=== PATIENT | male | born 1940 | race Caucasian/White ===

== ENCOUNTER 2019-06-17 21:41 | Inpatient (IN) ==
[2019-06-17] MEDS ORDERED: ATIVAN IV ONE (22:49)
[2019-06-17] MEDS ORDERED: LIBRIUM PO ONE (22:49)
--- NOTE | 2019-06-17 22:52 | PROVIDER DOCUMENTATION ---
This chart was entered by Rahat Martinez Scribe, acting as scribe for Bridgett Thomas MD. HPI-Musculoskeletal Pain/Inj - GENERAL Chief Complaint: Fall Stated Complaint: fall/fx Time Seen by Provider: 06/17/19 21:56 Source: patient, EMS - HX OF PRESENT ILLNESS-MUSKULOSKELTAL Nature of Presenting Problem: 79 yom presents to the ed v/a EMS from Transfer from [facility] with a right femoral neck and right humeral head fracture. pt states falling "lost balance" and fell, pt states no LOC or hitting Head. evaluated with labs, ct head and x-rays. Labs only remarkable for elevated etoh. Per Dr. Giang at [place] ED spoke with Dr. Bailon our orthopedic surgeon who wanted pt transfer to the ED prior to admission. On arrival to the ED pt without complaints Quality of Pain: reports: none Severity in ED: mild Onset/Duration: just prior to arrival (transfer from [facility]) Timing: still present Modifying Factors: improves with: nothing Any recent injury?: Yes Locality of Occurance: Home Similar Symptoms Previously?: No Recently seen or treated by another doctor?: Yes (transfer from [facility]) - FALL INJURY Location of Pain/Injury: reports: other (RT Femoral Head and Humeral Fracture stated on paper work brought w/ transfer) Reason for Fall: reports: lost balance Symptoms prior to fall:: reports: none Loss of Consciousness: no loss of consciousness Injury Associated Symptoms: reports: denies symptoms - HIP/PELVIS PAIN/INJURY Hip Pain Location: reports: other (RT Femoral Head and Humeral Fracture stated on paper work brought w/ transfer) Context / Method of Injury: reports: fall Associated Symptoms: reports: denies symptoms Review of Systems - Adult - REVIEW OF SYSTEMS - ADULT Constitutional: denies: chills, fever Eyes: reports: no symptoms reported Ears, Nose, Mouth & Throat: reports: no symptoms reported Cardiovascular: reports: no symptoms reported Respiratory: reports: no symptoms reported Gastrointestinal: denies: nausea, vomiting Genitourinary: reports: no symptoms reported Musculoskeletal: reports: see HPI. denies: back pain, muscle weakness Integumentary: reports: no symptoms reported Neurological: reports: no symptoms reported Psychiatric: reports: no symptoms reported Endocrine: reports: no symptoms reported Hematologic/Lymphatic: reports: no symptoms reported Allergic/Immunologic: reports: no symptoms reported All Other Systems: Reviewed and Negative Past History - Adult - PAST MEDICAL HISTORY-ADULT Review of Records: reports: Old Records Reviewed, Nursing Assessment Review, Medications Reviewed, Social history reviewed & non-contributory. Major Childhood Illnesses: reports: denies history Cardiovascular: reports: HTN Respiratory: reports: denies history Gastrointestinal: reports: cancer (colon) Obstetrical/Gynecological: reports: denies history Genitourinary: reports: prostate cancer Musculoskeletal: reports: denies history Neurological: reports: denies history Psychiatric: reports: denies history Endocrine/Immune: reports: denies history Other Conditions: reports: other (skin cancer) - PRIOR SURGERIES/PROCEDURES Surgical/Procedure History: reports: reviewed, not pertinent - IMMUNIZATION STATUS Childhood Immunizations: See Nurse Assessment Flu Vaccine: See Nurse Assessment - FAMILY HISTORY Family History: reviewed, not pertinent - SOCIAL HISTORY Smoking: denies Substance Use: alcohol (chronic) Physical Exam-Injury Related - Physical Exam-Injury Related Initial Vital Signs Reviewed: Yes General Appearance: appears well, alert, no apparent distress Eyes: PERRL/EOMI, pink conjunctivae Head, Ears, Nose, Mouth & Throat: normocephalic/atraumatic, moist mucous membranes Neck: non-tender, full range of motion, supple Respiratory: chest non-tender, lungs clear, normal breath sounds Cardiovascular: normal peripheral pulses, regular rate, rhythm Abdominal Exam: non tender, soft Extremity: other (right arm in sling, mild ttp over proximal humerus, ttp over right hip, 2+ pulses neurovascularly intact) Integumentary: normal color, warm/dry Neurologic: grossly normal, no motor/sensory deficits Psych/Mental Status: normal mood/affect, normal thought content, normal thought process, oriented x 3 - Glascow Coma Score Best Eye Response ([place]): (4) open spontaneously Best Verbal Response ([place]): (5) oriented Best Motor Response ([place]): (6) obeys commands [place] Total: 15 Progress - PLAN OF CARE/RESULTS Progress/Plan/Lab Results: Vital Signs - 8 hr 06/17/19 21:55 Temperature 98.6 F Pulse Rate 103 H Respiratory Rate 20 Blood Pressure 151/92 O2 Sat by Pulse Oximetry 96 fall with hip and humerus fracture. Discussed case with Dr. Bailon who would like pt admitted to the hospitalist and plans surgical intervention tomorrow. Discussed case with Dr. Shi, hospitalist, who will see and admit pt. - CONSULTS/PCP/HOSPITALIST Notification #1 *Consult/PCP/Hospitalist*: consult w/ Ortho Time Discussed: 22:28 #2 Consult: consult w/ Hospitalist Time Discussed: 22:30 Consult Disposition: Admit Departure - Departure Date of Disposition Decision: 06/17/19 Time of Disposition Decision: 22:51 DIAGNOSIS: Hip fracture Qualifiers: Encounter type: initial encounter Fracture type: closed Laterality: right Qualified Code(s): S72.001A - Fracture of unspecified part of neck of right femur, initial encounter for closed fracture Humerus fracture Qualifiers: Encounter type: initial encounter Humerus Location: proximal Fracture type: closed Fracture morphology: other fracture Fracture alignment: displaced Laterality: right Qualified Code(s): S42.291A - Other displaced fracture of upper end of right humerus, initial encounter for closed fracture Disposition: ADMITTED INPATIENT 09 Certified Medical Emergency: Emergent Condition: Good - Critical Care Note This patient required my direct & personal management of CC.: No Attestation - Physician/ MITZY Attestation Patient care was provided by Advanced Practice Provider:: No The physician spent face to face time with patient:: Yes Advanced Practice Provider documentation review:: Supervising physician onsite and consulted in the evaluation and care of this patient. The physician did have a face to face encounter with the patient. This chart was documented by the indicated scribe, (Rahat Martinez, [place]) and accurately reflects the services I performed and decisions made by me, Bridgett Thomas MD, as attested by the provider's signature.
[2019-06-17] MEDS ORDERED: THIAMINE 200 MG in NS 50 ML IV ONE (23:03)
--- NOTE | 2019-06-17 23:49 | HISTORY AND PHYSICAL ---
ADDENDUM: Mr. May is a 79-year-old male with past medical history of chronic alcoholism, hypertension, anxiety disorder, who after a drinking spell missed his foot and fell, and sustained a right femoral head and humeral fracture. He has a pre-existing ankle fracture. He was transferred from [facility] after being accepted by orthopedic doctor. The patient denies any loss of consciousness and did not hit his head. He is very anxious and is worried that he may go into full-blown withdrawal. He drinks about 1-1/2 to 2 bottles of wine every day. His last drink was sometime this afternoon. PHYSICAL EXAMINATION: VITAL SIGNS: Heart rate 103, blood pressure 151/92, temperature is 98.6 degrees, respiratory rate is 20. GENERAL: A very anxious and slightly tremulous man, who is not in acute distress. MUSCULOSKELETAL: Slight bruise on the right side of his quaker and maxilla. He has a hard cast on his right ankle and a soft cast on his right forearm. EXTREMITIES: Neurovascularly intact. GASTROINTESTINAL: Slightly distended abdomen with decreased bowel sounds. CARDIOVASCULAR: Normal. PLAN: Get this patient to the ICU because I am very concerned that he could go into full-blown delirium tremens and that could be a problem on the floor. I think it will serve him well to be in the ICU during his immediate perioperative period before transfer to the floor. We will start him on Ativan, Librium, thiamine. Can use beta blockers or clonidine as his choice of antihypertensive during his stay. Replete electrolytes and start him on fluids. cc: Kristina Dean MD MTDD
[2019-06-18 00:52] LABS: BASO# 0.02 X1000 (0.0-0.2); BASO% 0.3 % (0.0-0.8); EOS# 0.05 X1000 (0.0-0.7); EOS% 0.7 % (0.0-10.0); HEMATOCRIT 33.7 % (42.0-52.0); HEMOGLOBIN 11.3 g/dL (14.0-18.0); IMM GRAN# 0.02 X1000 (0.0-0.04); IMM GRAN% 0.3 % (0.0-0.5); LYMPH# 1.09 X1000 (1.2-3.4); LYMPH% 14.4 % (20.5-51.1); MCH 31.7 PG (27-31); MCHC 33.5 g/dL (33-37); MCV 94.7 FL (81-99); MONO# 1.29 X1000 (0.11-0.59); MPV 8.5 FL (7.4-10.4); NEUT% 67.3 % (42.2-75.2); PLT 227 X1000 (130-400); RBC 3.56 XMIL (4.7-6.1); RDW 14.2 % (11.5-14.5); WBC 7.57 X1000 (4.8-10.8)
[2019-06-18 01:05] LABS: URINE SOURCE CLEAN CATCH
[2019-06-18 01:06] LABS: INR 1.03; PROTIME 13.6 Seconds (11.0-16.0)
[2019-06-18 01:07] LABS: PTT 31.3 Seconds (22.3-41.8)
[2019-06-18 01:08] LABS: BILIRUBIN URINE NEGATIVE (NEGATIVE); BLOOD URINE NEGATIVE (NEGATIVE); COLOR YELLOW; GLUCOSE URINE NEGATIVE (NEGATIVE); KETONE URINE TRACE mg/dL (NEGATIVE); LEUKOCYTES URINE NEGATIVE (NEGATIVE); NITRITE URINE POSITIVE (NEGATIVE); PROTEIN URINE NEGATIVE (NEGATIVE); SP GRAVITY URINE 1.009; TURBIDITY URINE CLEAR (CLEAR); UR EPITHELIAL CELLS <10 /HPF (<10); URINE BACTERIA NEGATIVE /HPF; URINE RBC <10 /HPF (<10); URINE WBC <10 /HPF (<10); UROBILINOGEN URINE NORMAL (NORMAL)
[2019-06-18 01:16] LABS: AGAP 17; ALB/GLOB RATIO 1.3; ALBUMIN 3.8 g/dL (3.5-5.0); ALKALINE PHOSPHATASE 91 U/L (32-122); BUN 7 mg/dL (8-22); CALCIUM 8.6 mg/dL (8.8-10.2); CHLORIDE 92 mmol/L (98-107); COSMO 255; CREATININE 0.7 mg/dL (0.7-1.2); ESTIMATED GFR > 60; GLUCOSE 105 mg/dL (70-104); GOT 150 U/L (10-34); GPT 45 U/L (10-44); MAGNESIUM 1.6 mg/dL (1.5-2.7); POTASSIUM 4.4 mmol/L (3.5-5.1); SODIUM 128 mmol/L (136-145); TCO2 19 mmol/L (25-35); TOTAL BILIRUBIN 0.66 mg/dL (0.20-1.00); TOTAL PROTEIN 6.8 g/dL (6.3-8.3)
[2019-06-18 01:16] LABS: UR AMPHETAMINES QUAL NONE DETECTED (NONE DETECT); UR BARBITUATES QUAL NONE DETECTED (NONE DETECT); UR BENZODIAZEPIN QUAL NONE DETECTED (NONE DETECT); UR CANNABINOIDS QUAL NONE DETECTED (NONE DETECT); UR COCAINE QUAL NONE DETECTED (NONE DETECT); UR METHADONE QUAL NONE DETECTED (NONE DETECT); UR OPIATES QUAL PRESUMPTIVE POSITIVE (NONE DETECT); UR OXYCODONE QUAL NONE DETECTED (NONE DETECT); UR PCP QUAL NONE DETECTED (NONE DETECT)
--- NOTE | 2019-06-18 02:26 | EKG Report ---
Test Performed on : 06/18/2019 00:35:09 AM Test Reason : R Hip Fx,R Humeral Fx,ETOH Intoxication Blood Pressure : / mmHG Vent. Rate : 114 BPM Atrial Rate : 114 BPM P-R Int : 158 ms QRS Dur : 078 ms QT Int : 332 ms P-R-T Axes : 048 -49 005 degrees QTc Int : 457 ms Sinus tachycardia. Left anterior fascicular block Anterolateral infarct , age undetermined Abnormal ECG No previous ECGs available Confirmed by Yair VILLARREAL, Sorin Roblero ([id number]) on 06/20/2019 5:56:32 PM
[2019-06-18] MEDS ORDERED: ZOFRAN IV PRN (02:28)
[2019-06-18] MEDS ORDERED: TYLENOL PO PRN (02:28)
[2019-06-18] MEDS ORDERED: NS 1,000 ML IV SCH (02:30)
[2019-06-18] MEDS ORDERED: SODIUM CHLORIDE 0.9% INJ SCH (02:30)
[2019-06-18] MEDS: PROTONIX IV SCH (03:25)
[2019-06-18] MEDS: ATIVAN IV PRN ×2 (04:09→11:03)
[2019-06-18] MEDS: LIBRIUM PO SCH ×3 (05:24→18:47)
[2019-06-18 06:21] LABS: URINE SOURCE CATH
[2019-06-18 06:24] LABS: BILIRUBIN URINE NEGATIVE (NEGATIVE); BLOOD URINE TRACE (NEGATIVE); COLOR YELLOW; GLUCOSE URINE NEGATIVE (NEGATIVE); KETONE URINE 40 mg/dL (NEGATIVE); LEUKOCYTES URINE LARGE (NEGATIVE); NITRITE URINE POSITIVE (NEGATIVE); PROTEIN URINE NEGATIVE (NEGATIVE); SP GRAVITY URINE 1.013; TURBIDITY URINE CLEAR (CLEAR); UROBILINOGEN URINE NORMAL (NORMAL)
[2019-06-18 06:25] LABS: UR EPITHELIAL CELLS <10 /HPF (<10); URINE BACTERIA 1+ /HPF; URINE RBC <10 /HPF (<10); URINE WBC TNTC /HPF (<10)
[2019-06-18] MEDS: MORPHINE IV PRN ×2 (07:38→12:23)
--- NOTE | 2019-06-18 09:16 | Diag Imaging Result Doc PS360 ---
CT HEAD W/O CONTRAST - 06/18/2019 INDICATION: Fall,hitting head,abrasion/bruise to R cheek COMPARISON: None FINDINGS: There is anterior dislocation of the temporal mandibular joints bilaterally. Majority of the mandible is not imaged as this is a head CT only. There is moderate diffuse atrophy of the brain. No intracranial mass or hemorrhage. The calvarium is intact. The sinuses all appear clear. IMPRESSION: 1. Age-indeterminate bilateral temporomandibular joint dislocation. 2. Cerebral atrophy but no intracranial injury. This exam was performed using automated exposure control, adjustment of mA or kV according to patient size, and/or use of iterative reconstruction technique Electronically signed by Julius Delatorre 06/18/2019 9:14 AM
--- NOTE | 2019-06-18 10:11 | Diag Imaging Result Doc PS360 ---
SHOULDER-RIGHT - 06/18/2019 INDICATION: fx TECHNIQUE: Two views COMPARISON: None FINDINGS: There is a severely impacted, severely comminuted, displaced fracture of the humeral head. No dislocation. IMPRESSION: Severe right humeral head fracture. Electronically signed by Julius Delatorre 06/18/2019 10:08 AM
--- NOTE | 2019-06-18 10:13 | Diag Imaging Result Doc PS360 ---
HIP W/PELVIS BILAT 2 VIEWS - 06/18/2019 INDICATION: fx TECHNIQUE: Four views COMPARISON: None FINDINGS: There is a mildly impacted right femoral neck fracture, at the base of the femoral neck. No definite intertrochanteric extension. No dislocation. There is advanced vascular calcification of the femoral artery systems bilaterally. There are numerous surgical clips in the pelvic soft tissues. IMPRESSION: Right femoral neck fracture. Electronically signed by Jluius Delatorre 06/18/2019 10:11 AM
--- NOTE | 2019-06-18 10:16 | Diag Imaging Result Doc PS360 ---
FEMUR MIN 2 VIEWS RIGHT - 06/18/2019 INDICATION: fx TECHNIQUE: Two views COMPARISON: None FINDINGS: There is no distal femur fracture. IMPRESSION: No distal femur fracture. Electronically signed by Julius Delatorre 06/18/2019 10:14 AM
--- NOTE | 2019-06-18 12:39 | HISTORY AND PHYSICAL ---
PRIMARY CARE PROVIDER: Dr. Benson Elizondo in [*] [place]. CHIEF COMPLAINT: Fall. HISTORY OF PRESENT ILLNESS: Mr. May is a 79-year-old male with a past medical history of chronic alcoholism, hypertension, anxiety disorder and depression. The patient was transferred to our facility from [facility] ER. He was transferred from their ER to our ER here. He was excepted by the orthopedic doctor, Dr. Bailon. According to patient report and ER nurse report, over the past 2 days the patient has fallen twice. The patient reports that yesterday on June 16 that he did fall while trying to get up out of bed and did hit his right cheek area on what sounded to be either possibly the side of the bed or a bedside table. They did not report any loss of consciousness. The patient also reports that today, he fell due to he was walking with his walker saw a piece of paper lying on the floor, was going to attempt to bend over and pick it up and when he bent over, he became dizzy. When he stood back up, he was dizzy and fell. The patient states he is unsure if he hit his head, though, he did not report any loss of consciousness. After his fall, he did report right shoulder and right hip pain. Coincidentally the patient, in February 2019, did fracture his right humerus in a very similar location as his fracture this evening. He stated this did not require surgical intervention. He did wear a sling for quite some time. Also, recently he had injured his right lower extremity. He has a right ankle cast noted for treatment of a reported tib-fib fracture. The patient reports that he does live at home with his , though, she was not home during these falls that he is reporting. The patient does report that he drinks approximately half a box to a box of wine a day. He states he has drink this much daily for a few years now. He does report that when he goes without drinking he does experience some withdrawal symptoms, though denies any history of alcohol withdrawal seizures. Also noted upon my examination, was the patient did appear to have dried blood noted from the corner of his mouth bilaterally down his chin. This did appear to be like coffee-ground emesis in appearance. It also did have a smell of blood as well. The patient denies any recent nausea, vomiting, or any emesis or coffee-grounds emesis. I did check the patient's mouth thoroughly for any type of abrasions are lacerations thinking the patient may have possibly bitten his tongue or lip when he failed, though I did not note any injury to his top or bottom lip or the inside of his mouth. He did not have any dry blood noted in either nares. He did not have any blood noted in the posterior pharynx. I do not believe this came from a nosebleed either. Upon further questioning the patient, he did report that previously he did take pain medication like [place] and was drinking alcohol and this was causing him to have increased falls. He states this was causing him to have increased falls. He did stop taking the [place] and reports that he has been taking ibuprofen instead. He takes 800 mg ibuprofen tablets. Usually, he states he takes 2 a day, though, has taken up to 4. Though he denied denies any hematemesis or melena. He denies any abdominal pain. The patient is alert oriented to person, place, time, and situation. He is able to answer questions appropriately and follow commands. He denies any headache. He did report dizziness just prior to both of his falls. This does sound to be orthostatic in nature. His fall on the was when he was trying to get out of bed, going from a sitting to a standing position and his fall yesterday was when he bent over to pick a piece of paper and became dizzy and fell. He denies any cough, shortness of breath or chest pain. He denies any abdominal pain. He denies any dysuria or urinary frequency. Other than his reported right arm pain and right hip pain, he is not reporting any other pain, numbness, tingling or swelling or any other injuries at this time. IMAGING: Initial radiology studies performed at [facility], a right shoulder x-ray, which did show a comminuted fracture of the humeral neck which involved the greater tuberosity. There is also a right femur x-ray, which noted a foreshortened right femur compatible with a femoral neck fracture. There was a chest x-ray performed in the ER. The image is available for viewing on the patient's disk, which did arrive with him to the ER, though, I do not have a radiologist report. There did not appear to be any acute abnormalities, though, we are awaiting official radiology overview. After arriving to our facility here, we did perform a CT of the head without contrast, which did not show any acute intracranial abnormality, though there was noted to be bilateral dislocation of TMJ. Though, this was age indeterminate. LABS: Labs of note that were drawn at [facility]: He was slightly anemic, hemoglobin 11, hematocrit 34. Sodium was slightly low at 126. Serum alcohol level was 247, though, I do not have a urinalysis available for viewing and they did report that he did have a urinary tract infection and was given a dose of Rocephin there. PHYSICAL EXAMINATION: Upon my examination of the patient in our ER, he was resting in bed. He was awake, alert and oriented to person, place, time, and situation. The patient was reporting right shoulder and right hip pain, though the patient was not reporting any other pain at this time. He did report to me about hitting his head yesterday during his fall and possibly hitting his head tonight. He does have a very slight erythematous area of what appears to be ecchymosis on his right cheek and maybe a small abrasion. Though, this area was not tender upon palpation. He denies any neck pain. He had no C-spine tenderness noted. He is denying any back pain. He denies any numbness or tingling in extremities. He does have good capillary refill less than 3 seconds in his toes distal to the injury of his right hip and he does have a cast in place on his right lower extremity. The patient can open and close his mouth and move his jaw laterally [id number] and does not report any pain. There did not appear to be any obvious deformity as well. The patient denied any known previous jaw injury. He did have some what appeared to be dried coffee-ground appearing emesis noted to his mouth from bilateral corners inward down his valentine. This did smell of blood as well. He denied any previous nausea or vomiting. He states he does not know what that is on his chin or how it got there. We did do a Hemoccult stool which was negative. The patient does report daily alcohol use and daily use of high dose ibuprofen 800 mg tablets. Though we did repeat his hemoglobin and hematocrit, it was stable at this time at 11.3 and hematocrit 33.7. The patient was placed in the ICU for close monitoring given his history of alcoholism and high concern for likely alcohol withdrawal. REVIEW OF SYSTEMS: A 14 point review of systems was conducted with the patient. All were negative except for pertinent positives mentioned above HPI. PAST MEDICAL HISTORY: 1. Alcohol abuse. 2. Hypertension. 3. History of acute renal failure. 4. Depression. 5. Anxiety. 6. History of colon cancer status post colon resection. 7. History of prostate cancer status post prostatectomy. PAST SURGICAL HISTORY: 1. Colon resection. 2. Prostatectomy. 3. Questionable surgery for possible perforated viscus. SOCIAL HISTORY: The patient states that he did smoke cigarettes for a period of 3 to 4 weeks, though this was several years ago. He denies any other tobacco use. He denies any illicit drug use either. He does report that he drinks half a box to a box of wine a day and has done this for a few years now. He does report that he lives at home with his and he does use ambulatory assistance of a walker. FAMILY HISTORY: Positive for his father having history of lung cancer. His mother secondary to what they believe was a myocardial infarction. ALLERGIES: Patient reports no known allergies. HOME MEDICATIONS: 1. Lexapro 20 mg p.o. daily. 2. [place] 5 mg tablet 1 tablet p.o. p.r.n. as directed. 3. Lisinopril 10 mg p.o. daily. DIAGNOSTIC DATA: Please see patient's medical records from [facility] that is on the patient's chart for further details about laboratory studies performed there. Diagnostic studies performed here to our facility after the patient's arrival included white blood cell count is 7570, hemoglobin 11.3, hematocrit 33.7, platelet count is 227,000. PT 13.6, INR 1.03, PTT is 31.3. Sodium 128, potassium 4.4, chloride 92, serum bicarbonate is 19, BUN 7, creatinine 0.7 with a GFR greater than 60, glucose 105, calcium 8.6, phosphorus 3, magnesium is 1.6. Total bilirubin 0.66, AST of 150, ALT [*], alkaline phosphatase is 91. CK is 5420. Urine drug screen was positive for opiates, though, the patient had already received pain medication at [facility] ER. Urinalysis was positive for trace ketones and nitrites. EKG showed sinus tachycardia at a rate of 114 with a QTc of 457. Chest x-ray performed at [facility] did not show any acute abnormality, though, we are awaiting official radiology over-read. I did not have a report available for this study at this time. Right shoulder x-ray did show comminuted fractures of the humeral neck, which involves the greater tuberosity. Right femur x-ray did show a foreshortened right femur compatible with a femoral neck fracture. CT of the head without contrast did not show any acute abnormality, though, it did not show any acute intracranial abnormalities, though, it did note that the patient has dislocated bilateral TMJ. This is a age indeterminate. PHYSICAL EXAMINATION: VITAL SIGNS: Temperature 98.6 degrees, heart rate 103, respirations 20, blood pressure is 151/92, oxygen saturation is 96% per nasal cannula at 2 L. GENERAL: Mr. May is a 79-year-old male who is resting in the ER stretcher. He was in no acute distress. He was awake, alert, and able to answer questions appropriately. HEENT: Head atraumatic, except for he does have a very small area of what appears to be ecchymosis, which is erythematous in color. There was a small abrasion noted as well. The pupils were equal, round, reactive to light, were 3 mm bilaterally and brisk. Sub-conjunctivae were pink. Oral mucosa was moist. Oropharynx was clear. The patient does have dry blood noted bilaterally from each corner of his mouth inward toward his chin from his bottom lip down to his chin. This did appear to have a coffee-ground emesis appearance and did smell of blood as well. Though, the patient's mouth did not have any blood noted. There is no laceration, sores, or wounds noted either. There is no blood noted in the posterior pharynx. There was no blood noted in either naris as well. The patient was able to open and close his mouth and move his jaw laterally from side to side without reports of any pain. There is no obvious deformity noted either. NECK: Supple. Trachea midline. CARDIOVASCULAR: Patient has S1-S2 present. No murmurs, gallops, rubs appreciated with a tachycardic rate that is regular. PULMONARY: Patient has symmetrical chest expansion bilaterally. Lung sounds are clear to auscultation in bilateral full conrad. ABDOMEN: Soft, nontender. Does not appear to be distended. Bowel sounds were present in all 4 quadrants, were normoactive. The patient does have an abdominal hernia noted, but he states this has not increased in size. It is nontender upon palpation. EXTREMITIES: No cyanosis or edema noted. Radial pulses are 2+ bilaterally. Dorsalis pedis pulse in left lower extremity was 2+ as well. Pulse, motor and sensory is intact in all extremities, though, the patient's pedal pulse on his right foot was unable to be obtained. He does have a hard cast noted. He does good have good capillary refill less than 3 distal to the splint in his right toes. MUSCULOSKELETAL: The patient did not report any neck pain. He had no C-spine tenderness noted. He denied any back pain. He did not report any rib pain or tenderness upon palpation. INTEGUMENTARY: The patient's skin is pink, warm, and dry. NEUROLOGICAL: Patient is alert and oriented to person, place, time, and situation. He is able move all extremities. There are no focal neurological deficits noted. ASSESSMENT AND PLAN: 1. Right hip fracture. 2. Right humeral fracture. 3. A recent right tibia-fibular fracture for which the patient does have a hard cast noted at this time. For treatment of #1, 2 and 3 we have placed a consult with Orthopedic surgery with Dr. Bailon. The patient will remain NPO at this time until he is evaluated by Dr. Bailon in the morning. We will continue with p.r.n. pain medication. The patient does have a shoulder immobilizer in place at this time. We will await Orthopedic surgery evaluation and further recommendations for management. 4. Multiple falls. It is uncertain exactly what could be contributing to the patient's falls. He does have alcohol abuse. This likely would put him at high risk for falls as well, though he is describing what sounds to be some dizziness when going from sitting to standing and bending over and standing back. This could be orthostatic related falls as well. We will continue to monitor this closely. Though, the patient is unable to perform orthostatics at this time due to his right hip fracture. 5. Bilateral dislocation of temporomandibular joints. The patient denies any recent known injury or previous injury to either 1 of his temporomandibular joints. It could be possible with his recent falls that he may have injured this, though, the CT report noted that the age was indeterminate. The patient can open and close his mouth, can move his jaw laterally without any reported pain. We will continue to monitor this. 6. Alcohol abuse. We will monitor the patient closely for alcohol withdrawal. He does report a history of this when he goes for a period without drinking, though, he denies any history of withdrawal seizures. We have placed orders for p.r.n. Ativan. We have also placed him on Librium. He will receive a daily banana bag as well. He has been placed in the ICU for close monitoring given this. 7. Possible coffee-grounds emesis. The patient did have what appeared to be dried coffee-grounds emesis noted to his lower lip and chin, though, this was not present inside his mouth upon my examination. We did perform Hemoccult stool which did which was negative. He denies any nausea, vomiting, hematemesis, hematochezia or melena. Though, he does drink daily and has been reporting that he takes anywhere from 2 to 4 ibuprofen 800 mg daily. We have placed him on Protonix 40 mg IV hours, though, we do need to continue to monitor this. 8. Urinary tract infection. The patient did have nitrites noted in his urine. We will continue Rocephin at this time. We are awaiting urine culture results. 9. Deep vein thrombosis prophylaxis. We will leave this to the discretion of the Orthopedic surgical team, given that the patient is going to likely need surgical repair of his hip and possible humeral fracture. The patient has been placed in ICU for close monitoring. We will monitor his electrolytes closely. He will be on continuous cardiac telemetry, pulse oximetry with frequent vital signs and neurological checks. Further orders and recommendations pending hospital course, diagnostic studies, and physician evaluation. Dictated by KOFI Arreola for Kristina Dean MD cc: Kristina Dean MD
[2019-06-18 12:45] LABS: HEMATOCRIT 33.3 % (42.0-52.0); HEMOGLOBIN 10.9 g/dL (14.0-18.0)
[2019-06-18 13:04] LABS: AGAP 15; BUN 9 mg/dL (8-22); CALCIUM 8.6 mg/dL (8.8-10.2); CHLORIDE 96 mmol/L (98-107); COSMO 261; CREATININE 0.7 mg/dL (0.7-1.2); ESTIMATED GFR > 60; GLUCOSE 101 mg/dL (70-104); MAGNESIUM 1.6 mg/dL (1.5-2.7); PHOSPHORUS 2.8 mg/dL (2.7-4.5); POTASSIUM 4.7 mmol/L (3.5-5.1); SODIUM 131 mmol/L (136-145); TCO2 20 mmol/L (25-35)
--- NOTE | 2019-06-18 13:08 | Diag Imaging Result Doc PS360 ---
HIP 1 VIEW RIGHT - 06/18/2019 11:15 AM INDICATION: FX; TRACTION TECHNIQUE: COMPARISON: 9:34 AM FINDINGS: There has been reduction in the impacted right femoral neck fracture. No dislocation. IMPRESSION: Reduction in the impaction of the right femoral neck fracture. Electronically signed by Julius Delatorre 06/18/2019 1:06 PM
--- NOTE | 2019-06-18 13:09 | Diag Imaging Result Doc PS360 ---
ANKLE COMPLETE RIGHT - 06/18/2019 INDICATION: FX TECHNIQUE: Three views COMPARISON: None FINDINGS: The ankle is imaged in a cast. This significantly obscures most of the detail. There is a displaced spiral distal fibular fracture. There is mild widening of the ankle mortise. There is severe peripheral vascular disease. Fracture of the medial malleolus cannot be excluded. IMPRESSION: Displaced lateral malleolus fracture. Cannot exclude medial malleolus fracture. Electronically signed by Julius Delatorre 06/18/2019 1:07 PM
[2019-06-18 13:20] LABS: CK TOTAL 3027 U/L (24-204)
[2019-06-18] MEDS ORDERED: KEFZOL 1 GM/D5W 2 GM/100 ML IVPB ONE (16:12)
[2019-06-18] MEDS ORDERED: OFIRMEV 1000 MG/ISOTONIC SOLN 1,000 MG/100 ML BOTTLE ONE (16:16)
[2019-06-18] MEDS ORDERED: ZEMURON ONE ×2 (16:16→16:33)
[2019-06-18] MEDS ORDERED: DECADRON ONE (16:16)
[2019-06-18] MEDS ORDERED: TORADOL ONE (16:16)
[2019-06-18] MEDS ORDERED: ZOFRAN ONE (16:16)
[2019-06-18] MEDS ORDERED: LABETALOL (DOSE) ONE (16:18)
[2019-06-18] MEDS ORDERED: DIPRIVAN 1% ONE (16:40)
[2019-06-18] MEDS ORDERED: NEOSTIGMINE ONE (17:17)
[2019-06-18] MEDS ORDERED: ROBINUL ONE (17:17)
[2019-06-18] MEDS ORDERED: MAGNESIUM SULFATE 2 GM/S.W.I. 2 GM/50 ML IVPB IV ONE (17:20)
[2019-06-18] MEDS: NS 1,000 ML IV SCH (17:30)
--- NOTE | 2019-06-18 19:33 | PROGRESS NOTE ---
DATE: 06/18/2019 SUBJECTIVE: The patient is resting comfortably in bed. He had periods of agitation overnight and required Ativan as well as morphine this morning. He states that he drinks alcohol daily. OBJECTIVE: Vital Signs: Temperature 99 degrees, blood pressure 106/67, heart rate 117, respirations 22, O2 saturations 94% on 2 L nasal cannula. General: This is a chronically ill- appearing elderly male lying in bed in no acute distress. Heart: S1, S2 normal. Tachycardic. Lungs: Clear to auscultation bilaterally. No wheezing. No rales. No rhonchi. Abdomen: Positive bowel sounds. Soft, nontender, nondistended. Extremities: No edema, no cyanosis. Neurologic: The patient is alert and oriented to person and place. LABS: White blood cell count 7.5, hemoglobin 10, hematocrit 33, platelets 227,000, sodium 131, potassium 4.7, chloride 96, CO2 20, BUN 9, creatinine 0.7, glucose 101, magnesium 1.6. CK 3027. ASSESSMENT AND PLAN: 1. Alcohol withdrawal. Continue on the current treatment regimen to include her Librium and Ativan as needed. 2. Right femoral neck fracture. The patient is scheduled to undergo surgery today. 3. Rhabdomyolysis. Continue with IV fluids. 4. Alcohol dependence. Aware. 5. Urinary tract infection. Continue on Rocephin. Urine culture results are currently pending. 6. Hypomagnesemia. We will replace the patient's magnesium. 7. DVT prophylaxis. [facility] cc: MD GRETTA Snyder
[2019-06-18] MEDS: ROCEPHIN 1 GM in NS 50 ML IV SCH (19:54)
--- NOTE | 2019-06-18 20:09 | ORTHOPAEDICS CONSULTATION ---
DATE: 06/18/2019 CHIEF COMPLAINT: Fall. HISTORY OF PRESENT ILLNESS: Mr. May is a 79-year-old male who presented to the emergency department at [facility] on 06/17/2019 after a fall. He has complained of a lot of right hip pain and shoulder pain. He has a history of right shoulder fracture that has been taking care of by Dr. Vázquez. He has also had a right ankle fracture that has been followed outpatient as well. Unfortunately he fell and injured the right hip, and radiographs at [facility] showed a hip fracture. He was transferred over to [facility] and admitted per the hospitalist service. PAST MEDICAL HISTORY: Significant for alcoholism and recent fractures. ALLERGIES: No known drug allergies. MEDICATIONS: Per the medical record. REVIEW OF SYSTEMS: Positive for alcoholism, right hip pain, right shoulder pain and right ankle pain. PHYSICAL EXAMINATION: General: Mr. May is lying in bed, mainly complaining of pain in his hip. He is in no acute distress. Head and Neck: Normocephalic, atraumatic. Respiratory: He has nonlabored breathing. Cardiovascular: Regular pulse. Abdomen is nondistended. On right upper extremity exam, his upper extremity is in a sling. He does have a little bit of tenderness to palpation on the shoulder but not bad. On right lower extremity exam he is tender to palpation all around the hip. He has a cast on the right ankle. He is able to move his toes really well and has good capillary refill to the toes. DIAGNOSTIC DATA: Radiographs of the right shoulder show a subacute fracture of his proximal humerus. Pelvis and femur films of the right side show a high intertrochanteric fracture. Right ankle films show a lateral malleolus fracture with some displacement. ASSESSMENT: 1. Acute right intertrochanteric hip fracture. 2. Right subacute shoulder fracture. 3. Right subacute ankle fracture. PLAN: I discussed with Mr. May about everything going on. Unfortunately, he did break the hip which will require surgical intervention. I went over with him and his significant other about surgery. I went over with him the procedure, risks, benefits and potential complications. Risks include, but are not limited to infection, wound healing problems, damage to nerves, arteries or veins, numbness, malunion, nonunion, hardware-related issues, continued pain, DVT and anesthesia- related risks. After discussing these with the patient, he expressed understanding and wished to proceed. This will be a right trochanteric femoral nailing. He will be NPO and we will get this done today. cc: Luis F Bailon MD
--- NOTE | 2019-06-18 22:48 | OPERATIVE NOTE ---
PROCEDURE DATE: 06/18/2019 PREOPERATIVE DIAGNOSES: 1. Right intertrochanteric hip fracture. 2. Right lateral malleolus fracture. POSTOPERATIVE DIAGNOSES: 1. Right intertrochanteric hip fracture. 2. Right lateral malleolus fracture. PROCEDURES: 1. Right trochanteric femoral nailing. 2. Right open reduction and internal fixation lateral malleolus. SURGEON: Dr. Luis F Bailon. ACCOUNTS PAYABLE OR RECEIVABLE CLERK: None. ANESTHESIA: General with LMA. ESTIMATED BLOOD LOSS: Total blood loss 250 mL, 200 at the hip, about 50 at the ankle. IMPLANTS: 1. Synthes 11 x 380 trochanteric femoral nail with 105 mm helical blade. 2. Synthes 1/3 tubular plate and screws. DISPOSITION: To PACU, hemodynamically stable. INDICATION FOR PROCEDURE: Mr. May is a 79-year-old male who has a history of falling and multiple fractures. He fell, unfortunately, broke his hip, so I discussed with him and his family about operative intervention. They expressed understanding and wished to proceed. DESCRIPTION OF PROCEDURE: Mr. May was identified in the preoperative holding area. The right hip and right ankle were marked as correct surgical site. He was then wheeled to the operating room, kept supine on his own bed. He was induced under general anesthesia. Endotracheal tube was placed. He was then moved to the traction table. Some slight traction was pulled on that right hip. Right lower extremity was then prepped with chlorhexidine, gluconate scrub and then ChloraPrep, and draped in normal sterile fashion. Surgical pause was performed. We identified the correct patient, correct side, and the correct procedure. Preop antibiotics were given. I started with an incision just proximal to the greater trochanter. Dissection was carried down. I got my starting position of the guidewire, advanced it in and then used my opening drill and then got my ball-tip guidewire down. Fluoroscopic imaging showed that we did have a really good reduction on AP and lateral views. I then reamed up to a size 12 and then placed an 11 x 380 trochanteric femoral nail down. I then made an incision on the lateral thigh and then got my aiming guide in for the helical blade. I passed the guidewire up center-center in the head, I reamed and then passed the helical blade up. I secured it to the rohan with set screw and then removed the outrigger guide. Final images were taken which showed we had good reduction and good overall position. I then closed that wound with 0 Vicryl for the deep layer, 2-0 Vicryl for the subcutaneous and mariela on the skin. Island dressings were then applied. We took all drapes down then, moved him from the traction bed to a regular OR bed, then the right lower extremity was prepped with chlorhexidine, gluconate scrub and then ChloraPrep, and draped in normal sterile fashion. Another surgical pause was performed. We identified the correct patient, correct side, and the correct procedure. Preop antibiotics were given. I did not use a tourniquet on the ankle. I made an incision over the lateral aspect of the ankle, dissection was carried down. I identified the fracture site. There was some callus formation already there, so we did have to sort of break apart some of that callus that was there. I then was able to mobilize the distal piece and reduce it really well with a pointed reduction clamp. I then used a lag screw and lagged it in. I then used a 7-hole 1/3 tubular plate, secured it proximally and distally. Radiographs then looked really good. His joint looked really good. External rotation stress test did not show any instability. We then closed that incision with 0 Vicryl for the deep layer, 2-0 Vicryl for the subcutaneous and mariela on the skin. Adaptic, 4x4s, ABD, soft roll and posterior splint was applied. He was then awoke from general anesthesia, moved to his own bed and taken to the ICU in stable condition. PLAN: Postoperatively, he will be nonweightbearing right lower extremity. Physical therapy will start working with him and social media sr strategy manager will be involved for rehab placement. cc: Luis F Bailon MD
[2019-06-19] MEDS: LIBRIUM PO SCH ×5 (00:04→20:01)
[2019-06-19] MEDS: PROTONIX IV SCH (01:44)
[2019-06-19] MEDS: ATIVAN IV PRN ×7 (02:52→21:28)
[2019-06-19 04:44] LABS: HEMATOCRIT 23.8 % (42.0-52.0); HEMOGLOBIN 7.8 g/dL (14.0-18.0); LYMPH# 0.34 X1000 (1.2-3.4); LYMPH% 5.6 % (20.5-51.1); MCHC 32.8 g/dL (33-37); MCV 97.5 FL (81-99); MONO# 0.47 X1000 (0.11-0.59); MONO% 7.8 % (1.7-9.3); NEUT# 5.24 X1000 (1.4-6.5); NEUT% 86.6 % (42.2-75.2); PLT 163 X1000 (130-400); RBC 2.44 XMIL (4.7-6.1); RDW 13.9 % (11.5-14.5); WBC 6.05 X1000 (4.8-10.8)
[2019-06-19 05:07] LABS: AGAP 12; BUN 12 mg/dL (8-22); CALCIUM 7.4 mg/dL (8.8-10.2); CHLORIDE 101 mmol/L (98-107); CK TOTAL 1502 U/L (24-204); COSMO 271; CREATININE 0.8 mg/dL (0.7-1.2); ESTIMATED GFR > 60; GLUCOSE 186 mg/dL (70-104); MAGNESIUM 1.8 mg/dL (1.5-2.7); PHOSPHORUS 2.4 mg/dL (2.7-4.5); POTASSIUM 4.4 mmol/L (3.5-5.1); SODIUM 133 mmol/L (136-145); TCO2 20 mmol/L (25-35)
[2019-06-19 05:13] LABS: LYMPHS 8 % (21-51); SEGS 88 % (42-75)
[2019-06-19] MEDS: NS 1,000 ML IV SCH (05:53)
--- NOTE | 2019-06-19 08:09 | Diag Imaging Result Doc PS360 ---
CHEST-1 VIEW - 06/19/2019 INDICATION: dyspnea COMPARISON: None FINDINGS: The lungs are normally expanded and clear. Heart size and mediastinal contours are normal. No pneumothorax or pleural effusion. There is a right shoulder fracture. IMPRESSION: No acute disease. Electronically signed by Julius Delatorre 06/19/2019 8:06 AM
[2019-06-19] MEDS ORDERED: M.V.I.-12 10 ML, FOLIC ACID 1 MG, MAGNESIUM SULFATE 1 GM, THIAMINE 100 MG in NS 1,000 ML IV SCH (09:00)
--- NOTE | 2019-06-19 09:09 | ORTHOPAEDICS PROGRESS NOTE ---
DATE: 06/19/2019 SUBJECTIVE: Mr. May is sitting up in his hospital bed this morning. He says he is feeling a lot better. He says the hip does not really hurt much at all this morning. OBJECTIVE: Right lower extremity exam: Dressing is clean, dry, and intact. Splint is clean, dry, and intact to the ankle. He is able to move his toes really well, and has good sensation to light touch to the toes. ASSESSMENT: 1. Status post right trochanteric femoral nailing. 2. Right open reduction internal fixation, ankle. PLAN: Mr. May is nonweightbearing, right lower extremity. I do want him up with therapy though, and sitting in a bedside chair. I think he is doing a lot better from orthopedic standpoint. Will continue to follow. cc: Luis F Bailon MD
[2019-06-19] MEDS ORDERED: DUONEB (A & A) INH PRN (10:08)
[2019-06-19] MEDS: LOVENOX SUBQ SCH (12:11)
[2019-06-19] MEDS: MORPHINE IV PRN ×2 (17:58→20:29)
[2019-06-19] MEDS: ATIVAN 20 MG in NS 190 ML IV SCH (18:17)
[2019-06-19] MEDS: CLINIMIX E 4.25%-5% SOLUTION 1,000 ML IV SCH (18:18)
--- NOTE | 2019-06-19 21:15 | PROGRESS NOTE ---
DATE: 06/19/2019 SUBJECTIVE: The patient has been noted to be very agitated today, requiring Ativan on a regular basis. OBJECTIVE: Vital Signs: Temperature 97.8 degrees, blood pressure 127/77, heart rate 98, respirations 18, O2 saturation 95% on room air. General: This is a chronically ill-appearing elderly male lying in bed in no acute distress. Heart: S1, S2 normal. Tachycardic. Lungs: Equal air entry bilaterally. No wheezing. No rales. Abdomen: Positive bowel sounds. Soft, nontender, nondistended. Extremities: No edema, no cyanosis. Neurologic: The patient is oriented to person and place. He is able to move all 4 extremities. LABORATORY AND DIAGNOSTIC DATA: White blood cell count 6, hemoglobin 7.8, hematocrit 23, platelets 163,000. Sodium 133, potassium 4.4, chloride 101, CO2 20, BUN 12, creatinine 0.8, glucose 186. CK 1502. Chest x-ray reveals no acute disease. ASSESSMENT AND PLAN: 1. Acute hypoxemic respiratory failure. The chest x-ray is clear. We will continue to monitor the patient's respiratory status closely. 2. Alcohol withdrawal. We will start the patient on the withdrawal protocol. 3. Status post right trochanteric femoral nailing. Management as per the orthopedic surgeon. 4. Status post open reduction and internal fixation of the right lateral malleolus. Management as per the orthopedic surgeon. 5. Anemia. Hemoglobin and hematocrit is decreased. We will continue to monitor this closely. 6. Hypomagnesemia. We will replace the patient's magnesium. 7. Hyponatremia. Improved. Continue to monitor closely. 8. Urinary tract infection. The urine culture is growing gram-negative rods. Continue on Rocephin. 9. Nutrition. We will start the patient on Clinimix. 10. Rhabdomyolysis. Improved. Continue on IV fluid. 11. Deep vein thrombosis prophylaxis. Continue on Lovenox. cc: Leonor Archibald MD MTDD
[2019-06-19] MEDS: ROCEPHIN 1 GM in NS 50 ML IV SCH (21:23)
[2019-06-19] MEDS ORDERED: PHENOBARBITAL IV ONE (21:37)
[2019-06-20] MEDS: PROTONIX IV SCH (02:14)
[2019-06-20] MEDS: LIBRIUM PO SCH ×2 (03:11→08:03)
[2019-06-20] MEDS: ATIVAN 20 MG in NS 190 ML IV SCH (03:26)
[2019-06-20 04:37] LABS: HEMATOCRIT 22.2 % (42.0-52.0); HEMOGLOBIN 7.1 g/dL (14.0-18.0); MCH 31.7 PG (27-31); MCV 99.1 FL (81-99); MPV 8.8 FL (7.4-10.4); RBC 2.24 XMIL (4.7-6.1); RDW 14.3 % (11.5-14.5); WBC 9.75 X1000 (4.8-10.8)
[2019-06-20 04:52] LABS: AGAP 8; ALB/GLOB RATIO 1.2; ALKALINE PHOSPHATASE 57 U/L (32-122); BUN 12 mg/dL (8-22); CALCIUM 8.1 mg/dL (8.8-10.2); CHLORIDE 103 mmol/L (98-107); COSMO 270; CREATININE 0.7 mg/dL (0.7-1.2); ESTIMATED GFR > 60; GLUCOSE 134 mg/dL (70-104); GOT 67 U/L (10-34); GPT 25 U/L (10-44); POTASSIUM 4.4 mmol/L (3.5-5.1); SODIUM 134 mmol/L (136-145); TCO2 23 mmol/L (25-35); TOTAL BILIRUBIN 0.43 mg/dL (0.20-1.00); TOTAL PROTEIN 5.5 g/dL (6.3-8.3)
--- NOTE | 2019-06-20 07:26 | ORTHOPAEDICS PROGRESS NOTE ---
DATE: 06/20/2019 SUBJECTIVE: Mr. May is on oxygen this morning. I understand that he did have a little bit of a rough night and was very agitated. He is on an Ativan drip. Per the nurse, Mr. May was saying that his hip was feeling great this morning, though he was not really waking up much to talk to me. OBJECTIVE: On right lower extremity exam, his hip dressing is clean, dry, and intact. His splint is intact to his ankle. He is not really following commands this morning. ASSESSMENT: 1. Status post right trochanteric femoral nailing. 2. Right ankle open reduction and internal fixation. PLAN: From an orthopedic standpoint, Mr. May is nonweightbearing to the right lower extremity for about a month. We will continue to follow along. Right now, it is more of a medical issue with his alcohol withdrawal. cc: Luis F Bailon MD
[2019-06-20] MEDS: CLINIMIX E 4.25%-5% SOLUTION 1,000 ML IV SCH (08:04)
[2019-06-20] MEDS ORDERED: LASIX IV ONE (08:12)
[2019-06-20] MEDS ORDERED: NS 500 ML IV ONE (08:12)
[2019-06-20] MEDS ORDERED: THIAMINE 100 MG in NS 50 ML IV SCH (08:15)
--- NOTE | 2019-06-20 08:25 | Diag Imaging Result Doc PS360 ---
EXAM: CHEST-PORTABLE 06/20/2019 HISTORY: dyspnea TECHNIQUE: AP portable at 0503 COMMENT: There is a severely comminuted fracture of the proximal right humerus. This was also present on 06/19/2019. There is some increase in blunting of the left costophrenic angle. There are platelike opacities in the lingula and left lower lobe. There is also ill-defined opacity in the right lower lobe. IMPRESSION: Bibasilar atelectasis versus pneumonia. Right humeral fracture. Electronically signed by Arnulfo Solitario 06/20/2019 8:22 AM
[2019-06-20 08:32] LABS: RETIC-HE 35.7 PG (28.2-36.6)
[2019-06-20 08:47] LABS: IRON SATURATION 15 %; TIBC 184 ug/dL; TOTAL IRON 28 ug/dL (53-167); UNBOUND IRON 156 ug/dL (112-346)
[2019-06-20 09:06] LABS: FERRITIN 439 ng/mL (30-400)
[2019-06-20] MEDS: LOVENOX SUBQ SCH (10:28)
[2019-06-20] MEDS ORDERED: NS 500 ML ONE (10:53)
[2019-06-20] MEDS: MUCOMYST 20% INH SCH ×2 (11:15→20:10)
[2019-06-20] MEDS: DUONEB (A & A) INH SCH ×4 (11:16→23:30)
[2019-06-20] MEDS ORDERED: LEVOPHED 8 MG in D5 1/2 NS 250 ML IV SCH (12:15)
[2019-06-20 12:24] LABS: ALLEN TEST YES; BE 3.2 mmoll (-3.0-3.0); BLOOD TYPE ARTERIAL; HCO3-(ACT) 27.5 mmoll (20.0-26.0); METHB 0.7 % (0.0-1.5); O2(CT) 11.8 mL/dL (15.0-23.0); O2HB 97.3 % (95.0-99.0); PCO2(98.6) 36 mmHg (35-45); PO2(98.6) 140 mmHg (60-100); SAMPLE BLOOD; SAO2 100.8 % (95.0-100.0); THB 8.4 g/dL (11.5-17.4); pH(98.6) 7.48 (7.35-7.45)
[2019-06-20 12:25] LABS: MODALITY VENTIMASK
[2019-06-20] MEDS: MAXIPIME 1 GM in NS 50 ML IV SCH (14:58)
[2019-06-20] MEDS ORDERED: FOLIC ACID 1 MG in NS 50 ML IV SCH (15:00)
[2019-06-20] MEDS: ZYVOX 600 MG/D5W 600 MG/300 ML IVPB IV SCH (15:01)
--- NOTE | 2019-06-20 16:10 | PROGRESS NOTE ---
DATE: 06/20/2019 SUBJECTIVE: The patient was noted to be confused and very agitated this morning. He is currently in wrist restraints. He is currently on an Ativan drip. OBJECTIVE: Vital Signs: Temperature 98.4 degrees, blood pressure 106/66, heart rate 87, respirations 24, O2 saturations 99% on a Venturi mask. Intake 4.1 L. Output 1.7 L. General: This is a chronically ill-appearing elderly male lying in bed in no acute distress. Heart: S1, S2 normal. Regular rate and rhythm. Lungs: Coarse breath sounds bilaterally with crackles. Abdomen: Positive bowel sounds. Soft, nontender, nondistended. Extremities: The right leg is wrapped in a boot with an Juan bandage. No edema in the left leg. Neurologic: The patient is awake but delirious and confused. LABS: White blood cell count 9.7, hemoglobin 7.1, hematocrit 22 platelets 161,000. Sodium 134, potassium 4.4 chloride 103, CO2 23, BUN 12, creatinine 0.7 glucose 134, iron 28, TIBC 184, % sat 15, ferritin 439. AST 67, ALT 25, alkaline phosphatase 57. CK 1763, folate 7.6. Chest x-ray, bibasilar atelectasis versus pneumonia. Right humeral fracture. ASSESSMENT AND PLAN: 1. Acute hypoxemic respiratory failure. The x-ray today showing pneumonia. The patient also has coarse breath sounds on examination today. We will adjust the patient's antibiotic therapy. Continue with bronchodilator therapy. We will add Mucomyst. We will also consult with the leather stamper. 2. Suspected pneumonia. The antibiotic coverage has been adjusted. Continue with bronchodilator therapy and supplemental oxygen. 3. Alcohol withdrawal. We will discontinue the Ativan drip due to the patient's worsening respiratory status. We will use Ativan p.r.n. versus the infusion. 4. Right humerus fracture. Aware. Orthopedic Surgery is following. 5. Status post right trochanteric femoral nailing. Management as per the orthopedic surgeon. 6. Status post open reduction and internal fixation of the right lateral malleolus. Management as per the orthopedic surgeon. 7. Anemia. The patient appears to be iron deficient. We will transfuse 1 unit of packed red blood cells today. 8. Severe protein calorie malnutrition. The patient was on Clinimix, that is on hold. We will consult with the dietitian. 9. Urinary tract infection secondary to Escherichia coli. Continue with antibiotic therapy. 10. Rhabdomyolysis. Unchanged. The IV fluid is on hold due to the patient's volume overload. 11. Gastrointestinal prophylaxis. Continue on IV Protonix. 12. Deep vein thrombosis prophylaxis. Continue on Lovenox. cc: Leonor Archibald MD
[2019-06-20 20:38] LABS: HEMATOCRIT 27.5 % (42.0-52.0); HEMOGLOBIN 8.9 g/dL (14.0-18.0)
[2019-06-20 21:32] LABS: HEMOGLOBIN A1C 5.1 % (4.8-6.0)
--- NOTE | 2019-06-20 22:10 | PULMONOLOGY CONSULTATION ---
DATE: 06/20/2019 REQUESTING PHYSICIAN: Dr. Archibald. REASON FOR CONSULTATION: Respiratory failure, pneumonia, and ethanol withdrawal. HISTORY OF PRESENT ILLNESS: Mr. May is a 79 year old with limited tobacco history, daily alcohol intake, who was brought to the emergency room 06/17/2019 with an elevated alcohol level and a fall without reported loss of consciousness. He has a history of a right ankle fracture which was being followed as an outpatient, and presented with right hip pain and right shoulder pain following a fall. He has a subacute fracture of the ankle and a subacute fracture of the right shoulder, but had an acute right intertrochanteric hip fracture. He went to the operating room on the and underwent a right trochanteric femoral nailing along with an open reduction and internal fixation of the lateral malleolus. The patient became progressively agitated over the last 2 days requiring increased sedation and has been diagnosed with alcohol withdrawal syndrome. Chest x-ray today revealed bibasilar infiltrates. PAST MEDICAL HISTORY: 1. Alcohol use/abuse. 2. Remote history of tobacco use, which was minimized on presentation. 3. Hypertension. 4. Anxiety/depressive disorder. 5. Status post colon resection for cancer. 6. Status post prostatectomy for prostate cancer. SOCIAL HISTORY: Patient previously living at home with his . Daily alcohol use noted on the time of admission. FAMILY HISTORY: Positive for heart disease and lung cancer. REVIEW OF SYSTEMS: Could not be obtained. PHYSICAL EXAMINATION: General: A chronically ill-appearing male in ICU bed #1. He does have some upper airway obstruction which is periodic and completely relieved with a jaw advancement maneuver. He does not have increased work of breathing. Vital Signs: The patient has been afebrile for the last 24 hours. BP 109/61, heart rate 76, respiratory rate 22, oxygen saturation 98% on 4 L per nasal cannula. HEENT: Pupils are small and minimally reactive. Oropharynx appears clear but dry. Neck: Supple. Chest: Reveals scattered rhonchi bilaterally. Cardiac: S1, S2. Abdomen: Soft. Extremities: Without edema, but surgical dressings are in place on the right lower extremity. LABORATORIES: Chest x-ray reveals infiltrates left greater than right base. Urine culture reveals an E coli. White blood count 9.75, hemoglobin 7.1, platelet count 161,000, sodium 134, potassium 4.4, chloride 103, bicarbonate 23, BUN 12, creatinine 0.7. IMPRESSION: A 79 year old with: 1. Bibasilar pneumonia. 2. Delirium with alcohol withdrawal. 3. Obstruction with sleeping as outlined above. 4. Hypoxemic respiratory failure. RECOMMENDATION: 1. Agree with ICU monitoring. 2. Position patient on his left side in an attempt to decrease the obstruction. Consider a nasal trumpet. 3. Continue current antibiotic regimen. 4. Follow up arterial blood gas and chest x-ray tomorrow. cc: Marcello Harley MD
[2019-06-20] MEDS: ATIVAN IV PRN (22:58)
[2019-06-21] MEDS: MAXIPIME 1 GM in NS 50 ML IV SCH ×2 (00:37→11:38)
[2019-06-21] MEDS: ZYVOX 600 MG/D5W 600 MG/300 ML IVPB IV SCH ×2 (00:38→13:04)
[2019-06-21] MEDS: PROTONIX IV SCH (02:52)
[2019-06-21] MEDS: DUONEB (A & A) INH SCH ×6 (03:20→23:26)
[2019-06-21 04:35] LABS: ALLEN TEST YES; BE 2.6 mmoll (-3.0-3.0); BLOOD TYPE ARTERIAL; HCO3-(ACT) 26.9 mmoll (20.0-26.0); METHB 0.9 % (0.0-1.5); O2(CT) 16.2 mL/dL (15.0-23.0); O2HB 95.6 % (95.0-99.0); PCO2(98.6) 41 mmHg (35-45); PO2(98.6) 91 mmHg (60-100); SAMPLE BLOOD; SAO2 98.5 % (95.0-100.0); pH(98.6) 7.43 (7.35-7.45)
[2019-06-21 04:36] LABS: MODALITY CANNULA
[2019-06-21 06:07] LABS: HEMATOCRIT 26.7 % (42.0-52.0); HEMOGLOBIN 8.6 g/dL (14.0-18.0); MCH 32.6 PG (27-31); MCHC 32.2 g/dL (33-37); MCV 101.1 FL (81-99); MPV 9.3 FL (7.4-10.4); RBC 2.64 XMIL (4.7-6.1); RDW 14.4 % (11.5-14.5); WBC 8.4 X1000 (4.8-10.8)
[2019-06-21 06:54] LABS: AGAP 13; ALB/GLOB RATIO 1.4; ALBUMIN 3.2 g/dL (3.5-5.0); ALKALINE PHOSPHATASE 62 U/L (32-122); BUN 16 mg/dL (8-22); CALCIUM 8.3 mg/dL (8.8-10.2); CHLORIDE 100 mmol/L (98-107); COSMO 277; CREATININE 0.8 mg/dL (0.7-1.2); ESTIMATED GFR > 60; GLUCOSE 92 mg/dL (70-104); GOT 54 U/L (10-34); GPT 24 U/L (10-44); POTASSIUM 3.6 mmol/L (3.5-5.1); SODIUM 138 mmol/L (136-145); TCO2 25 mmol/L (25-35); TOTAL PROTEIN 5.5 g/dL (6.3-8.3)
[2019-06-21] MEDS: ATIVAN IV PRN (06:54)
[2019-06-21] MEDS: MUCOMYST 20% INH SCH ×2 (07:30→19:16)
--- NOTE | 2019-06-21 07:33 | Diag Imaging Result Doc PS360 ---
CHEST-PORTABLE - 06/21/2019 INDICATION: pneumonia COMPARISON: 06/20/2019 FINDINGS: Stable low lung volumes. Stable patchy atelectasis in the lung bases. Stable cardiomegaly and mild pulmonary vascular congestion. No new infiltrates. IMPRESSION: No change from prior. Electronically signed by Julius Delatorre 06/21/2019 7:31 AM
--- NOTE | 2019-06-21 08:34 | PROGRESS NOTE ---
DATE: 06/21/2019 INTERVAL HISTORY: No acute events overnight. His vitals were largely within acceptable range. According to nursing report, he had required 2 doses of intravenous lorazepam overnight. SUBJECTIVE: He appears alert. He follows simple commands. He is not engaging in meaningful conversation. He denies any chest pain, shortness of breath, or cough. He denies nausea, vomiting, or abdominal pain. VITAL SIGNS: Temperature of 98.1 degrees, pulse of 100, respiratory rate 20 blood pressure 108/74 he is saturating 97% on 2 L and cannula. PHYSICAL EXAMINATION: HEENT: His oral cavity has dried flecks of sputum. Pupils are bilaterally equal and reacting to light. Lungs: Air entry bilaterally equal. No wheeze, rhonchi, or crackles. Cardiovascular: S1, S2 normal. No murmur or gallop. Abdomen: Soft. He has a previous scar of laparotomy with abdominal hernia. Active bowel sounds. Nontender. No hepatosplenomegaly. Extremities: No lower extremity edema. He has a Verdugo catheter. His right arm and right leg are in a sling and immobilizer respectively. LABS: Input and output suggests he had 1.3 point L of urine so far. Labs suggestive of anemia with macrocytosis. ABG suggestive of PO2 of 91 and essentially normal electrolytes. Microbiology: Urine culture is growing Escherichia coli which is pansensitive. Chest x-ray suggests essentially stable chest with atelectasis. ASSESSMENT AND PLAN: 1. Acute hypoxic respiratory failure due to bilateral lower lobe pneumonia. Continue oxygen to maintain saturation more than 92%, intravenous linezolid and cefepime. His blood culture preliminary data has been negative. Appreciate Pulmonology recommendations. 2. Alcohol withdrawal with delirium requiring intravenous lorazepam drip which was stopped because of his hypoxia yesterday. Continue intravenous lorazepam as needed according to the protocol. Continue intravenous thiamine and folic acid. 3. Right humerus fracture managed nonoperatively, status post right trochanteric femoral nailing for right intertrochanteric fracture; status post open reduction internal fixation of right lateral malleolus fracture after mechanical fall. Continue nonweightbearing status on right lower extremity for 4 weeks as per orthopedic recommendation. Continue subcutaneous enoxaparin for DVT prophylaxis. Appreciate Orthopedic recommendation. 4. Acute blood loss anemia, likely due to blood loss sustained during surgery. Continue to monitor CBC. He is status post 1 unit packed red blood cell transfusion. I will continue him on folic acid. 5. Urinary tract infection and pneumonia. Continue current antibiotics. His rhabdomyolysis have been improving. 6. GI prophylaxis, continue pantoprazole. DISPOSITION: Continue to monitor patient in ICU. Plan of care discussed with nursing team. Their questions have been answered. cc: Edgard Herr MD MTDD
[2019-06-21] MEDS: THERA M PLUS PO SCH (10:03)
[2019-06-21] MEDS: VITAMIN B-1 PO SCH (10:03)
[2019-06-21] MEDS: LOVENOX SUBQ SCH (10:03)
[2019-06-21] MEDS: MORPHINE IV PRN (16:12)
--- NOTE | 2019-06-21 20:59 | PULMONOLOGY PROGRESS NOTE ---
DATE: 06/21/2019 SUBJECTIVE: The patient is somnolent, but opens his eyes to stimuli. He has some mild obstruction when sleeping. OBJECTIVE: Vital Signs: The patient has been afebrile for the last 24 hours. Blood pressure 122/78, heart rate 89, respiratory rate 19, oxygen saturation 98% on 3 L. HEENT: Pupils are equal. Oropharynx appears clear. Neck: Supple. Chest: Occasional rhonchi bilaterally. Cardiac: S1, S2. Abdomen: Soft. Extremities: Surgical dressings in place. LABORATORIES: White blood count 8.40, hemoglobin 8.6, platelet count 162,000. Sodium 138, potassium 3.6, chloride 100, bicarbonate 25, BUN 16, creatinine 0.8, glucose 92. Chest x-ray reveals atelectasis in the lung bases with mild cardiomegaly. IMPRESSION: A 79-year-old with: 1. Mild bibasilar pneumonia. 2. Delirium with alcohol withdrawal. 3. Obstructive sleep apnea. 4. Mild hypoxemic respiratory failure. 5. Status post subacute fracture of the shoulder with acute fracture of the right hip and ankle. PLAN: 1. Continue current antibiotic regimen. 2. Ativan p.r.n. agitation. 3. Continue bronchial hygiene. 4. Continue ICU monitoring until mental status improves. cc: Marcello Harley MD
[2019-06-22] MEDS: ZYVOX 600 MG/D5W 600 MG/300 ML IVPB IV SCH ×2 (00:21→12:10)
[2019-06-22] MEDS: MAXIPIME 1 GM in NS 50 ML IV SCH ×2 (00:21→12:09)
[2019-06-22] MEDS: PROTONIX IV SCH (02:42)
[2019-06-22] MEDS: DUONEB (A & A) INH SCH ×6 (03:11→23:19)
[2019-06-22 05:14] LABS: ALLEN TEST YES; BE 1.7 mmoll (-3.0-3.0); BLOOD TYPE ARTERIAL; HCO3-(ACT) 26.1 mmoll (20.0-26.0); METHB 1.1 % (0.0-1.5); O2(CT) 19.8 mL/dL (15.0-23.0); O2HB 92.2 % (95.0-99.0); PCO2(98.6) 38 mmHg (35-45); PO2(98.6) 69 mmHg (60-100); SAMPLE BLOOD; SAO2 95.5 % (95.0-100.0); THB 15.3 g/dL (11.5-17.4); pH(98.6) 7.44 (7.35-7.45)
[2019-06-22 05:15] LABS: MODALITY CANNULA
[2019-06-22 06:31] LABS: BASO# 0.02 X1000 (0.0-0.2); BASO% 0.3 % (0.0-0.8); EOS# 0.39 X1000 (0.0-0.7); EOS% 5.3 % (0.0-10.0); HEMOGLOBIN 8.8 g/dL (14.0-18.0); LYMPH% 19.2 % (20.5-51.1); MCH 31.2 PG (27-31); MCHC 31.4 g/dL (33-37); MCV 99.3 FL (81-99); MONO# 1.87 X1000 (0.11-0.59); MONO% 25.6 % (1.7-9.3); NEUT# 3.62 X1000 (1.4-6.5); NEUT% 49.6 % (42.2-75.2); PLT 191 X1000 (130-400); RBC 2.82 XMIL (4.7-6.1); RDW 14.2 % (11.5-14.5)
[2019-06-22 06:46] LABS: AGAP 14; ALB/GLOB RATIO 1.1; ALKALINE PHOSPHATASE 65 U/L (32-122); BUN 13 mg/dL (8-22); CALCIUM 8.3 mg/dL (8.8-10.2); CHLORIDE 97 mmol/L (98-107); COSMO 268; CREATININE 0.7 mg/dL (0.7-1.2); ESTIMATED GFR > 60; GLUCOSE 99 mg/dL (70-104); GOT 40 U/L (10-34); GPT 22 U/L (10-44); POTASSIUM 3.8 mmol/L (3.5-5.1); SODIUM 134 mmol/L (136-145); TCO2 23 mmol/L (25-35); TOTAL BILIRUBIN 0.62 mg/dL (0.20-1.00); TOTAL PROTEIN 5.8 g/dL (6.3-8.3)
[2019-06-22 07:20] LABS: EOS 2 % (1-10); LYMPHS 24 % (21-51); MONO 14 % (1-9); SEGS 60 % (42-75)
[2019-06-22] MEDS: MUCOMYST 20% INH SCH ×2 (07:42→19:23)
--- NOTE | 2019-06-22 07:46 | Diag Imaging Result Doc PS360 ---
CHEST-PORTABLE - 06/22/2019 INDICATION: pneumonia COMPARISON: 06/21/2019 FINDINGS: Stable slightly low lung volumes. Stable patchy infiltrate or atelectasis in both lung bases. Heart size remains normal. No new infiltrates. IMPRESSION: No change from prior. Electronically signed by Julius Delatorre 06/22/2019 7:44 AM
--- NOTE | 2019-06-22 08:10 | PROGRESS NOTE ---
DATE: 06/22/2019 INTERVAL HISTORY: No acute events overnight. Mr. May was saturating well on 3 to 4 L nasal cannula. His hemoglobin has stabilized. SUBJECTIVE: Mr. May appears much more awake and alert. He says that he is not actually withdrawing anymore. However, he still feels he needs something to help him calm down. He denies any chest pain or shortness of breath. He is hungry and wants to eat. We discussed about starting him on a liquid diet. He also says that he would want to go home by the end of the week because of football match. OBJECTIVE: Vital Signs: Temperature 98.6 degrees, pulse 90, respiratory rate 19, blood pressure 139/84, he is saturating 93% to 96% on 3 L nasal cannula. General: Not in acute distress. HEENT: Oral cavity has dry secretions. Lungs: Air entry bilaterally equal. No wheeze, rhonchi. He has mild crackles in infra-axillary region. He has strong cough. Cardiovascular: S1, S2 normal. Regular. No murmur or gallop. Abdomen: Soft, nontender. He has a previous scar of laparotomy with abdominal hernia, and active bowel sounds. : He has a Verdugo catheter. Extremities: No lower extremity edema. His right arm is in sling. Right leg is in immobilizer. Neurologic: He is alert and oriented x3. He does have some tremors that I could see. LABORATORY DATA: Hemoglobin of 8.8, WBC 7.3, platelets 191,000. ABG suggestive of oxygenation of 69 on 3 L nasal cannula. Sodium of 134, chloride 97. He has normal kidney function with creatinine 0.7. MICROBIOLOGY: Blood culture data in lab. No growth to date. IMAGING: Chest x-ray report is pending. On my review of chest x-ray, he does not seem to have significant infiltrate. ASSESSMENT AND PLAN: 1. Acute hypoxic respiratory failure due to bilateral lower lobe pneumonia. Continue oxygenation to maintain saturation more than 92%, intravenous linezolid and cefepime, and follow up final blood culture results. Pulmonology team on board. 2. Alcohol withdrawal with delirium, requiring intravenous lorazepam drip, which was stopped on 06/20/2019 because of his hypoxia. Currently, he is awake and alert. He does have mild tremulousness. I will start him on nighttime Librium and intravenous lorazepam as needed. Continue intravenous thiamine and folic acid. 3. Right humerus fracture after mechanical fall, managed nonoperatively; status post right trochanteric femoral nailing for right intertrochanteric fracture; status post open reduction internal fixation of right lateral malleolus fracture after mechanical fall. Continue nonweightbearing status on the right lower extremity for 4 weeks as per Orthopedic recommendation, and enoxaparin for deep venous thrombosis prophylaxis. 4. Acute blood loss anemia, likely due to blood loss sustained during surgery. Currently, hemoglobin appears to be stable. Continue him on multivitamin and iron. 5. Escherichia coli urinary tract infection. I will continue him on current antibiotics. 6. Others. Continue to monitor the patient in intensive care unit until his delirium improves and his oral intake is adequate. He has strong cough, and he appears much more awake today, and he seems to be improving. Plan of care discussed with the patient's nurse and the patient. All of their questions have been answered. cc: Edgard Herr MD
[2019-06-22] MEDS: VITAMIN B-1 PO SCH (09:19)
[2019-06-22] MEDS: LOVENOX SUBQ SCH (09:19)
[2019-06-22] MEDS: MORPHINE IV PRN ×2 (09:19→21:45)
[2019-06-22] MEDS: ICAR-C PO SCH (09:19)
[2019-06-22] MEDS: THERA M PLUS PO SCH (09:19)
[2019-06-22] MEDS ORDERED: LIBRIUM PO SCH (21:00)
--- NOTE | 2019-06-22 22:13 | PULMONOLOGY PROGRESS NOTE ---
DATE: 06/22/2019 SUBJECTIVE: The patient is awake and alert. He will answer questions. It is not clear he is oriented. He reports he does not want to go back to the rehab facility. OBJECTIVE: Vital Signs: The patient has been afebrile for the last 24 hours. Blood pressure 112/66, heart rate 99, respiratory rate 17, oxygen saturation 96% on 2 L per nasal cannula. HEENT: Pupils are equal and reactive. Oropharynx appears clear. Neck: Supple. Chest: Reveals crackles in the lung bases. Cardiac exam: S1-S2. Abdomen: Soft. There are surgical dressings on the hip and a soft cast on the right foot. LABORATORIES: White blood count 7.30, hemoglobin 8.8, platelet count 191,000. Arterial blood gas reveals a pH of 7.44, pCO2 of 38, pO2 of 69. Sodium 134, potassium 3.8, chloride 97, bicarbonate 23, BUN 13, creatinine 0.7. Chest x-ray reveals mild basilar infiltrates versus atelectasis. IMPRESSION: A 79-year-old with: 1. Mild bibasilar infiltrates. 2. Delirium with clinical improvement. 3. Obstructive sleep apnea. He has no evidence of obstruction on exam today. 4. Mild hypoxemic respiratory failure. 5. Status post recent fracture of the shoulder, right hip and ankle. PLAN: 1. Continue bronchial hygiene. 2. Continue antibiotic regimen. 3. Ativan p.r.n. 4. Wean oxygen as tolerated. 5. Consider transfer to the floor or to the [facility]. cc: Marcello Harley MD
[2019-06-23] MEDS: MAXIPIME 1 GM in NS 50 ML IV SCH ×2 (00:16→16:04)
[2019-06-23] MEDS: ZYVOX 600 MG/D5W 600 MG/300 ML IVPB IV SCH ×2 (01:16→16:03)
[2019-06-23] MEDS: PROTONIX IV SCH (02:06)
[2019-06-23] MEDS: ATIVAN IV PRN ×2 (02:54→23:37)
[2019-06-23] MEDS: DUONEB (A & A) INH SCH ×6 (03:30→22:42)
[2019-06-23] MEDS: MORPHINE IV PRN (04:23)
[2019-06-23 06:43] LABS: AGAP 11; ALB/GLOB RATIO 1.1; ALKALINE PHOSPHATASE 63 U/L (32-122); BUN 10 mg/dL (8-22); CALCIUM 8.5 mg/dL (8.8-10.2); CHLORIDE 98 mmol/L (98-107); COSMO 264; CREATININE 0.6 mg/dL (0.7-1.2); ESTIMATED GFR > 60; GLUCOSE 114 mg/dL (70-104); GOT 30 U/L (10-34); GPT 19 U/L (10-44); POTASSIUM 3.3 mmol/L (3.5-5.1); SODIUM 132 mmol/L (136-145); TCO2 23 mmol/L (25-35); TOTAL BILIRUBIN 0.82 mg/dL (0.20-1.00); TOTAL PROTEIN 5.8 g/dL (6.3-8.3)
[2019-06-23 06:58] LABS: BASO# 0.02 X1000 (0.0-0.2); BASO% 0.2 % (0.0-0.8); EOS# 0.23 X1000 (0.0-0.7); EOS% 2.4 % (0.0-10.0); HEMATOCRIT 27.5 % (42.0-52.0); HEMOGLOBIN 8.8 g/dL (14.0-18.0); LYMPH# 1.39 X1000 (1.2-3.4); LYMPH% 14.5 % (20.5-51.1); MCH 31.9 PG (27-31); MCV 99.6 FL (81-99); MONO# 1.85 X1000 (0.11-0.59); MONO% 19.3 % (1.7-9.3); MPV 8.8 FL (7.4-10.4); NEUT# 6.12 X1000 (1.4-6.5); NEUT% 63.6 % (42.2-75.2); PLT 182 X1000 (130-400); RBC 2.76 XMIL (4.7-6.1); RDW 13.8 % (11.5-14.5); WBC 9.61 X1000 (4.8-10.8)
[2019-06-23] MEDS ORDERED: NORCO-5 PO PRN (07:21)
[2019-06-23] MEDS ORDERED: MORPHINE IV PRN (07:21)
[2019-06-23] MEDS: KLOR-CON PO SCH ×2 (07:46→16:02)
[2019-06-23] MEDS: MUCOMYST 20% INH SCH ×2 (08:07→19:43)
--- NOTE | 2019-06-23 08:53 | PROGRESS NOTE ---
DATE: 06/23/2019 INTERVAL HISTORY: No acute events overnight. The patient did have episode of confusion at nighttime and he had received Librium for the first time. He was pulling out his IV lines in the morning time. He appears much more awake and alert. He denies chest pain, shortness of breath, nausea, vomiting, abdominal pain. He states he was eating okay and wants me to advance his diet. He wanted to go home. I explained to him about his multiple fractures and need for rehab and he understood it. VITALS: Temperature of 98.5 degrees, pulse 97 respiratory 23, blood pressure 140/60, saturating 93% on 2 L nasal cannula. PHYSICAL EXAMINATION: General: Not in any acute distress. Mouth: Oral cavity is moist. Lungs: Air entry bilaterally equal. No wheeze, rhonchi, crackles. Cardiovascular: S1, S2 normal. No murmur, rub, or gallop. Abdomen: Soft, nontender. Active bowel sounds. He has a previous scar of laparotomy with abdominal hernia. He has a Verdugo catheter. Extremities: His right arm is in sling, right leg is in immobilizer. He is able to flex and extend at the hip, knee and ankle joint left lower extremity, and left upper extremity at shoulder, elbow, and wrist joints. He is able to wiggle toes on the right lower extremity. LABS: Suggestive of hemoglobin of 8.8, platelet of 182. He does have hyponatremia, hypokalemia which is currently being repleted. BUN of 10, creatinine 0.6, potassium of 3.3. Liver function tests are normal. MICROBIOLOGY: No new data. ASSESSMENT AND PLAN: 1. Acute hypoxic respiratory failure due to bilateral lower lobe pneumonia. Continue oxygenation to maintain saturation more than 92% on intravenous linezolid and cefepime. Culture data has been negative. Today is day 5 of antibiotics. 2. Alcohol withdrawal with delirium requiring intravenous lorazepam drip, which was stopped on June 20 because of hypoxia. Currently, he is awake and alert. Continue as needed lorazepam, thiamine and folic acid. 3. Right humerus fracture after mechanical fall, managed nonoperatively; status post right trochanteric femoral nailing for right intertrochanteric fracture; status post open reduction internal fixation of right lateral malleolus fracture after mechanical fall. Continue nonweightbearing weightbearing status of right lower extremity for 4 weeks as per orthopedic recommendation, enoxaparin for deep vein thrombosis prophylaxis, and more intravenous morphine as needed for pain. I will add oral opioid containing hydrocodone. 4. Acute blood loss anemia due to blood loss sustained during surgery, now stable. Continue multivitamin, iron. He is status post 1 unit of red blood cell transfusion. 5. Escherichia coli urinary tract infection. Continue him on antibiotics. 6. Others. I will advance his diet to mechanical soft, transfer him to [facility], and Social Service has been consulted for rehabilitation. Plan of care discussed with the patient. He is in agreement with the plan. cc: Edgard Herr MD
[2019-06-23] MEDS: ICAR-C PO SCH (09:23)
[2019-06-23] MEDS: THERA M PLUS PO SCH (09:23)
[2019-06-23] MEDS: VITAMIN B-1 PO SCH (09:23)
[2019-06-23] MEDS: LOVENOX SUBQ SCH (09:23)
[2019-06-23] MEDS: LEXAPRO PO SCH (16:03)
--- NOTE | 2019-06-23 21:44 | PULMONOLOGY PROGRESS NOTE ---
DATE: 06/23/2019 SUBJECTIVE: The patient is awake, alert, and conversant. He appears to be more oriented. He has a good cough. OBJECTIVE: Vital Signs: The patient has been afebrile for the last 24 hours. Blood pressure 122/70, heart rate 97, respiratory rate 16, oxygen saturation 95% on room air. HEENT: Pupils are equal and reactive. Oropharynx is clear. Neck: Supple. Chest: Occasional rhonchi bilaterally. Cardiac: S1, S2. Abdomen: Soft. Extremities: Without edema. LABORATORIES: Microbiology reveals no new data. White blood count 9.61, hemoglobin 8.8, platelet count 182,000. IMPRESSION: 79-year-old with: 1. Hypoxemic respiratory failure. This is resolved. 2. Mild bibasilar infiltrates/pneumonia. 3. Delirium, with fluctuating mental status. 4. Status post multiple fractures. PLAN: 1. Continue bronchial hygiene. 2. Continue current antibiotic regimen. 3. Continue sedatives p.r.n. agitation or delirium. 4. Consider transfer to rehab soon if he continues to improve. cc: Marcello Harley MD
[2019-06-24] MEDS: DUONEB (A & A) INH SCH ×6 (03:54→23:00)
[2019-06-24] MEDS: ATIVAN IV PRN ×2 (04:22→10:37)
[2019-06-24] MEDS: MAXIPIME 1 GM in NS 50 ML IV SCH ×2 (04:22→15:45)
[2019-06-24] MEDS: PROTONIX IV SCH (04:22)
[2019-06-24] MEDS: ZYVOX 600 MG/D5W 600 MG/300 ML IVPB IV SCH ×2 (04:59→15:45)
[2019-06-24 07:20] LABS: BASO# 0.02 X1000 (0.0-0.2); BASO% 0.3 % (0.0-0.8); EOS# 0.39 X1000 (0.0-0.7); EOS% 5.3 % (0.0-10.0); HEMATOCRIT 27.7 % (42.0-52.0); HEMOGLOBIN 8.9 g/dL (14.0-18.0); IMM GRAN# 0.02 X1000 (0.0-0.04); IMM GRAN% 0.3 % (0.0-0.5); LYMPH% 19.1 % (20.5-51.1); MCH 31.7 PG (27-31); MCHC 32.1 g/dL (33-37); MCV 98.6 FL (81-99); MONO# 1.77 X1000 (0.11-0.59); MONO% 24.1 % (1.7-9.3); MPV 8.8 FL (7.4-10.4); NEUT# 3.73 X1000 (1.4-6.5); NEUT% 50.9 % (42.2-75.2); PLT 221 X1000 (130-400); RBC 2.81 XMIL (4.7-6.1); RDW 13.6 % (11.5-14.5); WBC 7.33 X1000 (4.8-10.8)
--- NOTE | 2019-06-24 07:35 | ORTHOPAEDICS PROGRESS NOTE ---
DATE: 06/24/2019 SUBJECTIVE: Mr. May is doing well this morning. Not really complaining of a lot of pain. OBJECTIVE: Right lower extremity exam, his splint is clean, dry, and intact. He is moving his toes up and down pretty well. He has some ecchymoses around the thigh but the incisions look good. ASSESSMENT: 1. Status post right trochanteric femoral nailing. 2. Right open reduction and internal fixation of ankle. PLAN: Mr. Mya is still nonweightbearing to the right lower extremity. I do want him getting up therapy and he also needs to be out of bed to chair for all meals. From an orthopedic standpoint, we will continue to follow. cc: Luis F Bailon MD
[2019-06-24] MEDS: MUCOMYST 20% INH SCH (08:55)
[2019-06-24 09:10] LABS: EOS 4 % (1-10); HYPOCHROM 1+; LYMPHS 18 % (21-51); MONO 14 % (1-9); SEGS 64 % (42-75)
[2019-06-24] MEDS: LEXAPRO PO SCH (09:57)
[2019-06-24] MEDS: VITAMIN B-1 PO SCH (09:57)
[2019-06-24] MEDS: THERA M PLUS PO SCH (09:57)
[2019-06-24] MEDS: ICAR-C PO SCH (09:57)
[2019-06-24] MEDS: LOVENOX SUBQ SCH (09:58)
[2019-06-24] MEDS ORDERED: HALDOL IV PRN (11:12)
--- NOTE | 2019-06-24 13:18 | DISCHARGE SUMMARY ---
ADMISSION DATE: 06/17/2019 DISCHARGE DATE: 06/25/2019 DISCHARGE CONDITION: At the time of dictation, hemodynamically stable. He is alert, answering questions appropriately. He still needs a lot of physical therapy. His hemoglobin has been stable. He denies any chest pain or shortness of breath. His cough is decreased. DISCHARGE DIAGNOSES: 1. Acute hypoxic respiratory failure due to bilateral lower lobe pneumonia. 2. Alcohol withdrawal with delirium. 3. Right humerus fracture after mechanical fall, managed nonoperatively. 4. Status post right trochanteric femoral nailing for right intertrochanteric femoral fracture. 5. Right lateral malleolus lower extremity ankle fracture, status post open reduction internal fixation. 6. Acute blood loss anemia due to blood loss sustained during surgery. 7. Escherichia coli urinary tract infection. OTHER DIAGNOSES: 1. Alcohol use disorder. 2. Mechanical fall on presentation. 3. History of anxiety. 4. History of colon resection. 5. Essential hypertension. 6. History of colon cancer, status post resection. 7. History of prostate cancer, status post prostatectomy. VITALS: At the time of this dictation, temperature 98.1 degrees, pulse 86, respiratory rate 18, blood pressure 148/83, saturating 95% on room air. PHYSICAL EXAMINATION: HEENT: During this dictation, oral cavity is moist. Lungs: Air entry bilaterally equal. No wheeze, rhonchi, crackles. Cardiovascular: S1, S2 normal. No murmur or gallop. Abdomen: Soft. There is a midline scar of previous laparotomy and umbilical hernia but abdomen is nontender. Active bowel sounds. He has a Verdugo catheter. Musculoskeletal: He has a right arm in the sling. Right leg is in an immobilizer. He is able to flex and extend at the hip, knee and ankle joint on the left lower extremity and shoulder elbow region on left upper extremity. He is able to wiggle toes on the right lower extremity and fingers on right upper extremity. He is alert and answering more questions appropriately. LABORATORY DATA: At the time of discharge, WBC 7.3, hemoglobin 8.9. Sodium is 132, potassium 3.3, which was repleted. BUN 10, creatinine 0.6. Significant microbiology: Blood culture did not have any growth. Influenza screen was negative. Urine culture was growing Escherichia coli which was sensitive to cefazolin. Stool occult blood test was negative. SIGNIFICANT IMAGING DURING HOSPITAL ADMISSION: Ankle x-ray on 06/18/2019 had displaced lateral malleolus fracture. Hip x-ray on 06/18/2019 has impacted right femoral neck fracture which was slightly reduced. Head CT on presentation had age-indeterminate bilateral temporomandibular joint dislocation, cerebral atrophy without any intracranial pathology. Femur x-ray on 06/18/2019 did not have any distal femur fracture. Shoulder x-ray on 06/18/2019 had severely impacted, severely comminuted displaced fracture of the humeral head without any dislocation. Chest x-ray on 06/22/2019 had stable slightly low lung volumes, stable patchy infiltrate or atelectasis in both lung bases. Electrocardiogram on 06/17/2019 had sinus tachycardia, left anterior fascicular block. PROCEDURES DURING HOSPITAL ADMISSION: On 06/18/2019, the patient underwent right trochanteric femoral nailing and right open reduction internal fixation of lateral malleolus. DISCHARGE MEDICATIONS: 1. Lexapro 20 mg daily. 2. Iron Carbonyl ascorbic acid 1 tablet daily. 3. Lovenox 40 mg subcu every 24 hours for up to 35 days. Please monitor hemoglobin as well as clinical signs and symptoms of anemia. 4. Oxycodone immediate release 5 mg every 6 hours as needed for pain not controlled on acetaminophen, 20 capsules have been prescribed. 5. Multivitamin 1 tablet daily. 6. Acetaminophen 650 mg every 6 hours as needed for pain. 7. Thiamine 100 mg daily. HOSPITAL COURSE SUMMARY: Mr. May is a 79-year-old man who initially presented on 06/17/2019 after a mechanical fall. Apparently, he does have prior history of chronic alcoholism, hypertension, and anxiety, and he was drinking alcohol, and he missed his foot and fell and sustained right femoral head and humeral fracture as well as right ankle fracture. So he presented to the emergency room. In the emergency room, he was hemodynamically stable, however, considering his mechanical fall and multiple fractures including right hip, right humerus and right ankle, hospitalist team was consulted for further management. He also had bilateral dislocation of temporomandibular joint, which was managed conservatively. He was initially admitted and underwent surgery of the right hip and right ankle, which he tolerated well. His right shoulder fracture was managed conservatively. Postoperatively, he did develop delirium due to alcohol withdrawal requiring intravenous lorazepam drip. However, with lorazepam drip, he became hypoxic, so he was closely monitored in the ICU. His alcohol withdrawal was managed with oral chlordiazepoxide, intravenous lorazepam as needed and currently is not showing any signs of alcohol withdrawal. He also developed pneumonia which was treated with intravenous antibiotics. At the time of dictation he is breathing well on room air. He received 1 unit of blood transfusion for his anemia and his hemoglobin was stable. He should receive enoxaparin for DVT prophylaxis. FOLLOW-UP INSTRUCTIONS: 1. Nonweightbearing on right lower extremity at least for 4 weeks and follow up with Dr. Bailon in his office in 7 to 10 days for right lower extremity wound evaluation. 2. Right shoulder humeral head fracture managed nonoperatively. He should have follow up with orthopedic doctor outpatient in the office. 3. Continue enoxaparin for deep venous thrombosis prophylaxis for 35 days. 4. Monitor hemoglobin for any signs of bleeding. TIME SPENT: More than 30 minutes time was spent discharging this patient. Plan of care extensively discussed with the patient and the patient's brother at bedside. He was allowed to ask questions. All of his questions were answered satisfactorily. cc: Edgard Herr MD MTDDiane
--- NOTE | 2019-06-24 16:10 | PROGRESS NOTE ---
DATE: 06/24/2019 INTERVAL HISTORY: He was transferred to medical floor. No other acute events, overnight events. SUBJECTIVE: His brother is at bedside. The patient is sleepy, easily arousable, does not appear in acute distress. Denies any chest pain, shortness of breath or cough. VITALS: Temperature 98.3 degrees, pulse 96, respiratory 18, blood pressure 136/80, saturating 97% on room air. PHYSICAL EXAMINATION: Not in acute distress. Oral cavity is moist. Air entry bilaterally equal. No wheeze, rhonchi, crackles. Cardiovascular S1, S2 normal. No murmur, rub or gallop. Abdomen soft, nontender. Abdominal hernia. No left lower extremity edema. He has a right upper extremity sling. Left lower extremity is in immobilizer. His neurovascular bundles appear intact on left foot. DATA: Labs suggestive of hemoglobin of 8.9, platelet 221,000. No new microbiological or imaging data. ASSESSMENT: 1. Acute hypoxic respiratory failure due to bilateral lower lobe pneumonia. 2. Acute cystitis due to Escherichia coli. 3. Alcohol withdrawal with delirium. 4. Right humerus fracture after mechanical fall. 5. Status post right trochanteric femoral nailing for right intertrochanteric fracture and open reduction and internal fixation for right lateral malleolus fracture. 6. 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 7. Acute blood loss anemia due to blood loss sustained during surgery. PLAN: My plan is to stop intravenous antibiotics tonight. Continue enoxaparin for DVT prophylaxis. I will stop intravenous lorazepam, start him on Haldol, and plan is to potentially discharge him to rehab tomorrow. The patient's brother is in agreement. His questions have been answered. cc: Edgard Herr MD
--- NOTE | 2019-06-24 17:54 | PROVIDER PROGRESS NOTE ---
Progress Note Dr. Child Progress Note/Pulmonary and or critical care We appreciated progress of care, Complications, change in diagnosis, and instructions to patient. Subjective: We note the level of consciousness, bed (chair) position, family presence (if any), level of lethargy, feeling of symptoms, and changes from baseline condition/symptom. The patient is lying in bed with no acute distress noted. He appears asleep with snoring, but easy to be aroused. He denies any pain. He is on room air. His qian santiago is at the bedside. Objective: Vital Signs: We reviewed EMR current values for Pulse rate, Blood pressure, Pulse rate, respiratory rate and Pulse oximetry. Also noted other values and trends if present (e.g. I/O, CVP). T 97.8, AR 88, RR 23, BP 116/71 and SaO2 100% on AC 10, 40%, 500, 5. I/O 1620 ml Physical Examination: General: Lying in bed with no acute distress noted. HEENT: Normocephalic. Trachea midline. Mucus pink and moist. Chest: Even and unlabored. Auscultation reveals diminished breathing sounds bilaterally. CVS: Regular rate and rhythm with S1 and S2 noted. Abdomen: Soft. Nontender. Normoactive bowel sounds in all 4 quadrants. Surgical dressings on the hip. Extremities: No pedal edema. No cyanosis. No clubbing. RUE in sling. RLE in a soft cast. Neuro: A/O x3. Slurred speech. Follow simple commands. Tremors noted. Labs and Radiology: Reviewed available labs and radiology values available at time of EMR review. Laboratory Results 06/24/19 06:35 WBC 7.33 RBC 2.81 L Hgb 8.9 L Hct 27.7 L MCV 98.6 MCH 31.7 H MCHC 32.1 L RDW Std Deviation 13.6 Plt Count 221 MPV 8.8 Immature Gran % (Auto) 0.3 Neut % (Auto) 50.9 Lymph % (Auto) 19.1 L [place] % (Auto) 24.1 H Eos % (Auto) 5.3 Baso % (Auto) 0.3 Immature Gran # (Auto) 0.02 Neut # (Auto) 3.73 Lymph # (Auto) 1.40 [place] # (Auto) 1.77 H Eos # (Auto) 0.39 Baso # (Auto) 0.02 Segmented Neutrophils 64 Lymphocytes 18 L Monocytes 14 H Eosinophils 4 Hypochromia 1+ Assessment: Mild hypoxemic respiratory failure. Resolved. Mild bibasilar infiltrates with possible bilateral lower lobe pneumonia. Alcohol withdrawal with delirium. Multiple fracture secondary to mechanical fall. S/P right trochanteric femoral nailing for right intertrochanteric hip fracture and ORIF for right lateral malleolus fracture on 06/18/19. E. coli UTI. Plan: Continue current treatment and supportive care per admitting and other teams on the case. Antibiotic (Cefepime and Linezolid), Bronchodilators. Mucomyst. Ativan prn. Continue bronchial hygiene. Appropriate DVT and GI prophylaxis Discharge planning per Admitting MD> Input was appreciated from Admitting MD and other teams on the case.
[2019-06-25] MEDS: DUONEB (A & A) INH SCH ×3 (03:49→11:24)
[2019-06-25] MEDS ORDERED: PROTONIX PO SCH (07:00)
[2019-06-25] MEDS: VITAMIN B-1 PO SCH (08:53)
[2019-06-25] MEDS: LEXAPRO PO SCH (08:53)
[2019-06-25] MEDS: THERA M PLUS PO SCH (08:53)
[2019-06-25] MEDS: ICAR-C PO SCH (08:53)
[2019-06-25] MEDS: LOVENOX SUBQ SCH ×2 (08:54→11:32)
[2019-06-25 09:01] VITALS: BP 145/82
--- NOTE | 2019-06-25 09:45 | PROGRESS NOTE ---
DATE: 06/25/2019 INTERVAL HISTORY: No acute events overnight. SUBJECTIVE: Mr. May is much more awake and alert today. He is answering questions appropriately. He denies chest pain, shortness of breath, or cough. He asked me a few questions regarding staying in rehab and going home from there and I discussed with him that he needs to get stronger when he goes to rehab before considering going home. I discussed with him that he has to be nonweightbearing on the right lower extremity at least for 1 month and he should see orthopedic doctor in his office in about 7 to 10 days time. I also told him about his fracture of the right shoulder that needs to be evaluated outpatient. VITAL SIGNS: Temperature of 99 degrees, pulse 105, respiratory 18, blood pressure 145/82, saturating 94% on room air. PHYSICAL EXAMINATION: General: Not in acute distress. HEENT: Oral cavity is moist. Lungs: Air entry bilaterally equal. No wheeze, rhonchi, or crackles. Cardiovascular: S1, S2 normal. No murmur, rub, or gallop. Abdomen: Soft, nontender. He has a previous laparotomy scar with abdominal hernia. Extremities: No left lower extremity edema. He has right upper extremity in sling. The left lower extremity is in immobilizer. He is able to wiggle toes on right lower extremity with intact dorsalis pedis pulses. He is able to move his fingers on the right upper extremity. LABORATORY DATA: No labs. ASSESSMENT: 1. Acute hypoxic respiratory failure due to bilateral lower lobe pneumonia, now resolved. 2. Acute Escherichia coli cystitis, now resolved. He is status post antibiotics course. 3. Alcohol withdrawal with delirium, now resolved. He is no longer on lorazepam. 4. Mechanical fall, likely in the setting of alcohol intoxication leading to right humerus head fracture, right intertrochanteric femoral fracture, right lateral malleolus ankle fracture requiring trochanteric femoral nailing on the right and open reduction and internal fixation of right ankle. 5. Acute blood loss anemia due to blood loss sustained during surgery. 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 He was advised to participate in physical therapy. Continue enoxaparin for DVT prophylaxis. Plan of care discussed with him. Plan is to discharge him to rehab today. cc: Edgard Herr MD
== END 2019-06-25 12:54 | DRG 480 ==
LOC: ED 21:41 → SUATTDRO 23:59 → ICU 23:59 → 4N 06-23 11:18
PROVIDERS: ATTEND Internal Medicine